=== PATIENT | male | born 1960 | race Hispanic/Latino ===

== ENCOUNTER 2016-09-25 10:19 | Outpatient (CLI) | payer MEDICARE ==
[2016-09-25 11:19] LABS: Bilirubin,Total 0.2 mg/dL (0.1-1.2)
--- NOTE | 2016-09-25 12:08 | XRay Report ---
BILATERAL HIPS WITH PELVIS, 3 VIEWS: History: Pain. Findings: Bone mineralization is within normal limits. There is no evidence for fracture, dislocation or pelvic diastasis. No advanced joint pathology is detected. The soft tissues are unremarkable. Impression: Unremarkable exam.
== END 2016-09-25 10:20 | disposition home or self-care (01) ==
LOC: XRAY 10:19
PROVIDERS: ATTEND Psychiatry & Neurology Neurology
DX: G35 Multiple sclerosis (principal); M25.551 Pain in right hip; M25.552 Pain in left hip; F17.200 Nicotine dependence, unspecified, uncomplicated
CPT/HCPCS: 36415; 73521; 82248; 84450; 84460

== ENCOUNTER 2018-12-16 10:46 | Outpatient (CLI) | payer MEDICARE ==
[2018-12-16 11:35] LABS: Basophils % (Auto) 0.4 % (0.0-1.8); Eosinophils # (Auto) 0.1 K/mm3 (0.0-0.4); Eosinophils % (Auto) 1.1 % (0.0-4.3); Hematocrit 43.5 % (35.5-45.6); Hemoglobin 14.9 gm/dl (11.8-15.2); Lymphocytes # (Auto) 1.2 K/mm3 (1.2-5.4); Lymphocytes % (Auto) 15.6 % (13.4-35.0); Mean Corpuscular HGB Conc 34 % (32-34); Mean Corpuscular Volume 90 fl (84-94); Monocytes # (Auto) 0.4 K/mm3 (0.0-0.8); Monocytes % (Auto) 5.7 % (0.0-7.3); Platelet Count 234 K/mm3 (140-440); Red Blood Count 4.84 M/mm3 (3.65-5.03); Red Cell Distribution Width 12.7 % (13.2-15.2)
--- NOTE | 2018-12-16 13:31 | XRay Report ---
XR hips BILAT 2V w/pelvis INDICATION / CLINICAL INFORMATION: ARTHRITIS. COMPARISON: None available. FINDINGS: BONES/JOINT(S): No acute fracture or subluxation. Mild bilateral hip DJD with mild marginal osteophyt e formation. No aggressive appearing bone lesions. SOFT TISSUES: No significant abnormality. ADDITIONAL FINDINGS: None. Signer Name: Zehn Gonzalez MD Signed: 12/16/2018 1:26 PM Workstation Name: [id number]
--- NOTE | 2018-12-16 13:35 | XRay Report ---
LUMBOSACRAL SPINE, 5 VIEWS INDICATION: ARTHRITIS. Back pain. COMPARISON: None. IMPRESSION: Normal bone mineralization. There is 3 mm anterolisthesis of L4 with respect to L5 which appears to be secondary to degenerative facet arthropathy. Moderate disc space narrowing is identif ied at L4-5. Disc space height is preserved at the remaining levels. There is mild to moderate diffus e facet arthropathy with hypertrophic changes. L3-4 and L4-5 are the most affected levels. The obliqu e images demonstrate no evidence for high-grade bony neural foraminal narrowing. No acute osseous in jury or bone lesion. Signer Name: Oscar Garcia Jr, MD Signed: 12/16/2018 1:31 PM Workstation Name: [id number]
== END 2018-12-16 10:47 | disposition home or self-care (01) ==
LOC: XRAY 10:46
PROVIDERS: ATTEND Psychiatry & Neurology Neurology
DX: G35 Multiple sclerosis (principal); M12.88 Other specific arthropathies, not elsewhere classified, other specified site; M16.0 Bilateral primary osteoarthritis of hip; R73.09 Other abnormal glucose
CPT/HCPCS: 36415; 72110; 73521; 80051; 82565; 82947; 85025